=== PATIENT | female | born 1970 | race African-American/Black ===

== ENCOUNTER 2017-09-29 18:25 | Emergency (ER) | payer MEDICAID ==
[~2017-09-29] VITALS: Ht 162.6 cm; Wt 63.0 kg
[~2017-09-29 18:25] MED LIST: IBUPROFEN600 MG ORAL; NKM
[2017-09-29 18:57] VITALS: BP 152/94
[2017-09-29] MEDS ORDERED: Acetaminophen 500mg (ES) tab PO ONE (19:00)
[2017-09-29] MEDS ORDERED: TYLENOL EXTRA500 MG ORAL (20:16)
[2017-09-29] MEDS ORDERED: CYCLOBENZAPRINE10 MG ORAL (20:16)
[2017-09-29 20:25] VITALS: BP 115/67
[2017-09-29 20:27] VITALS: BP 115/67
--- NOTE | 2017-09-30 09:55 | Diagnostic Imaging Report ---
Indication: H/A, injury, headache, status post fall Technique: Spiral acquisitions obtained through the cervical spine. No IV contrast utilized. Multiplanar reconstructions were generated. Total dose length product 1575.88 mGycm. CTDIvol(s) 70.38,12.94 mGy. Dose reduction achieved using automated exposure control. Comparison: none Findings: The tip of the C6 spinous process is unfused. Suspect this is developmental. There is reversal of the normal cervical lordosis. Otherwise normal bony alignment. No acute fractures. The vertebral body heights are preserved. There is degenerative disc narrowing at C5-6 and to a very slight extent at C6-7. The remaining disc spaces are preserved. No significant disc bulge or protrusion, spinal stenosis, or neural foraminal stenosis. Multiple nodules are seen in the thyroid, including a large isthmic nodule which measures 3.2 x 1.8 cm. The remaining extraspinal soft tissues are unremarkable Impression: No acute bony trauma Mild degenerative changes, as described Multiple thyroid nodules. Recommend further evaluation with ultrasound if these have not been worked up previously This agrees with the preliminary interpretation provided overnight by [facility]. The CT scanner at [facility] is accredited by the [employer] and the scans are performed using protocols designed to limit radiation exposure to as low as reasonably achievable to attain images of sufficient resolution adequate for diagnostic evaluation.
--- NOTE | 2017-09-30 09:56 | Diagnostic Imaging Report ---
Indication: H/A Head injury, status post fall, headache Technique: Continuous helical CT scanning of the head was performed without intravenous contrast material. Axial and coronal 5 mm sections were generated. Radiation dose was minimized using automated exposure control Dose: Total Dose Length Product - DLP 1575.[address] Dose Index - CTDIvol(s) 70.38,12.94 mGy. Comparison: 08/07/2015 Findings: The ventricular system is normal in size and configuration. There is no shift of midline structures. No abnormal extra-axial fluid collections are noted. There is no evidence of intracerebral bleeding. No other abnormal high or low density areas are noted within the brain. Previously demonstrated left parietal scalp hematoma is no longer evident. However, there is some parietal scalp soft tissue swelling at the vertex, at and just the left of midline, not evident previously. Minimal right supraorbital scalp soft tissue swelling appears similar to previous. Normal de león-white differentiation. Intact calvarium. Visualized orbits and sinuses are unremarkable. Impression: Negative for acute intracranial bleed or mass effect Evidence of extracranial scalp soft tissue injury This agrees with the preliminary interpretation provided overnight by [facility]. The CT scanner at [facility] is accredited by the [employer] and the scans are performed using protocols designed to limit radiation exposure to as low as reasonably achievable to attain images of sufficient resolution adequate for diagnostic evaluation.
--- NOTE | 2017-09-30 14:19 | Emergency Room Report ---
History of Present Illness General Chief Complaint: Head, Face, Neck Trauma Source: Patient Present Illness HPI 47-year-old female presents ED for evaluation. Patient states she was walking up the steps today and fell backwards and hit her head. States she felt weak at the time. States she's been having a "flu" for the last several days. Patient presents with pain to the back of her head, neck pain. Pain is an 8/10 , throbbing, nonradiating. Denies LOC. Denies photophobia or blurry vision. Denies nausea or vomiting. Tetanus up-to-date. Denies chest pain or shortness of breath. Denies fevers or chills. Denies cough. No other aggravating relieving factors. Denies any other associated symptoms Allergies: Coded Allergies: NO KNOWN ALLERGIES (Unverified Allergy, Unknown, 08/07/15) Patient History Past Medical History: none Past Surgical History: none Pertinent Family History: none Social History: Denies: smoking, alcohol use, drug use Last Menstrual Period: 09/28/17 Now: No Immunizations: UTD Reviewed Nursing Documentation: PMH: Agreed, PSxH: Agreed Nursing Documentation-PMH Hx Cancer: No - Throat Goiter Review of Systems All Other Systems: negative except mentioned in HPI Physical Exam Vital Signs Date Time Temp Pulse Resp B/P (MAP) Pulse Ox O2 Delivery O2 Flow Rate FiO2 09/29/17 18:29 99.1 95 18 152/94 99 Room Air 99.1 Sp02 EP Interpretation: reviewed, normal General Appearance: no apparent distress, alert, GCS 15, non-toxic Head: normocephalic, other - abrasion to scalp Eyes: bilateral eye normal inspection, bilateral eye PERRL ENT: hearing grossly normal, normal pharynx, no angioedema, normal voice Neck: full range of motion, supple/symm/no masses, tender lateral Respiratory: chest non-tender, lungs clear, normal breath sounds, speaking full sentences Cardiovascular #1: regular rate, rhythm, no edema Cardiovascular #2: 2+ carotid (R), 2+ carotid (L), 2+ radial (R), 2+ radial (L) , 2+ dorsalis pedis (R), 2+ dorsalis pedis (L) Gastrointestinal: normal bowel sounds, non tender, soft, non-distended, no guarding, no rebound Rectal: deferred Genitourinary: normal inspection, no CVA tenderness Musculoskeletal: back normal, gait/station normal, normal range of motion, non- tender Neurologic: alert, oriented x3, responsive, motor strength/tone normal, sensory intact, speech normal Psychiatric: judgement/insight normal, memory normal, mood/affect normal, no suicidal/homicidal ideation Reflexes: 3+ bicep (R), 3+ bicep (L), 3+ tricep (R), 3+ tricep (L), 3+ knee (R) , 3+ knee (L) Skin: normal color, no rash, warm/dry, well hydrated Lymphatic: no adenopathy Medical Decision Making Diagnostic Impression: Primary Impression: Head injury Qualified Codes: S09.90XA - Unspecified injury of head, initial encounter ER Course Hospital Course 47-year-old female presents with headache and neck pain status post fall down the stairs Differential diagnoses include: skull fx, intracranial injury, concussion Clinical course Patient placed on stretcher. After initial history and physical I ordered CT head, CT Cspine and pain medications CT head and CT C-spine unremarkable Discussed findings with the patient. On reassessment pain is improved Diagnosis - head injury Stable and discharged to home with Rx Tylenol, Flexeril. Followup with PMD. Return to ED if symptoms recur or worsen CT/MRI/US Diagnostic Results CT/MRI/US Diagnostic Results #1: Imaging Test Ordered: CT head Impression no acute process CT/MRI/US Diagnostic Results #2: Imaging Test Ordered: CT C-spine Impression no acute process Last Vital Signs Date Time Temp Pulse Resp B/P (MAP) Pulse Ox O2 Delivery O2 Flow Rate FiO2 09/29/17 20:27 98.3 86 14 115/67 98 Room Air Status: improved Disposition: HOME, SELF-CARE Condition: Stable Scripts Cyclobenzaprine Hcl* (FLEXERIL*) 10 Mg Tablet 10 MG ORAL TID Y for Muscle Spasm, #20 TAB Prov: KIRAN GAN M.D. 09/29/17 Acetaminophen* (TYLENOL EXTRA STRENGTH*) 500 Mg Tablet 500 MG ORAL Q8H Y for Prn Headache/Temp > 101, #30 TAB 0 Refills Prov: KIRAN GAN M.D. 09/29/17 Departure Forms: Return to Work Return to Work Date: Oct 02, 2017 Work Restrictions: None Patient Instructions: Head Injury, Adult, Urdp-io-Sitw KIRAN GAN M.D. Sep 30, 2017 14:19
== END 2017-09-29 20:48 | disposition home or self-care (01) ==
LOC: EMR 18:39
DX: S09.8XXA Other specified injuries of head, initial encounter (principal); W19.XXXA Unspecified fall, initial encounter; Y92.9 Unspecified place or not applicable; R51 Headache; M50.322 Other cervical disc degeneration at C5-C6 level; E04.2 Nontoxic multinodular goiter
CPT/HCPCS: 70450; 72125; 99284

== ENCOUNTER 2020-02-04 22:35 | Emergency (ER) | payer SELFPAY ==
[~2020-02-04] VITALS: Ht 162.6 cm; Wt 63.5 kg
[~2020-02-04 22:35] MED LIST changes: +CYCLOBENZAPRINE10 MG ORAL; +TYLENOL EXTRA500 MG ORAL
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
[2020-02-04 22:52] VITALS: BP 135/89
--- NOTE | 2020-02-04 23:00 | NUR ---
ED Nurse Note: ERMD at bedside
--- NOTE | 2020-02-04 23:01 | NUR ---
ED Nurse Note: Patient denies head trauma.
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
--- NOTE | 2020-02-04 23:09 | NUR ---
ED Nurse Note: Patient taken to CT in stable condition
--- NOTE | 2020-02-04 23:31 | NUR ---
ED Nurse Note: Patient returned from CT in stable condition. Xray at bedside.
--- NOTE | 2020-02-04 23:49 | NUR ---
ED Nurse Note: ERMD at bedside
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
[2020-02-05] MEDS ORDERED: IBUPROFEN600 M1 ORAL (00:07)
[2020-02-05] MEDS ORDERED: Neosporin Oint Ud Pkt TOPIC ONE (00:15)
[2020-02-05 00:16] VITALS: BP 133/85
--- NOTE | 2020-02-05 00:16 | NUR ---
ER DISCHARGE NOTE: Patient is cleared to be discharged per ERMD, pt is aox4, on room air, with stable vital signs. pt was given dc and prescription instructions, pt was able to verbalize understanding, pt id band removed. pt is able to ambulate with steady gait. pt took all belongings. pt stable upon discharge.
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
== END 2020-02-05 00:16 | disposition home or self-care (01) ==
LOC: EMR 22:48
DX: S01.81XA Laceration without foreign body of other part of head, initial encounter (principal); S09.90XA Unspecified injury of head, initial encounter; S80.212A Abrasion, left knee, initial encounter; W19.XXXA Unspecified fall, initial encounter; Y92.9 Unspecified place or not applicable
CPT/HCPCS: 70450; 99284

== ENCOUNTER 2020-02-29 01:17 | Emergency (ER) | payer SELFPAY ==
[~2020-02-29] VITALS: Ht 162.6 cm; Wt 63.5 kg
[~2020-02-29 01:17] MED LIST changes: +IBUPROFEN600 M1 ORAL
--- NOTE | 2020-02-29 01:35 | NUR ---
ED Nurse Note: Pt ambulated to ED from home c/o systemic hives, blanchable rash all over body for 3 weeks, worsened today, pt took benadryl, pt denies sob or any other symptoms. VSS Pt is A&Ox4. ERMD at bedside.
[2020-02-29] MEDS ORDERED: ZYRTEC10 MG ORAL (01:42)
[2020-02-29] MEDS ORDERED: PREDNISONE20 MG ORAL (01:42)
[2020-02-29 01:50] VITALS: BP 149/87
--- NOTE | 2020-02-29 01:50 | NUR ---
ER DISCHARGE NOTE: Patient is cleared to be discharged per ERMD, pt is aox4, on room air, with stable vital signs. pt was given dc and prescription instructions, pt was able to verbalize understanding, pt id band removed. pt is able to ambulate with steady gait. pt took all belongings.
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
== END 2020-02-29 01:50 | disposition home or self-care (01) ==
LOC: EMR 01:39
DX: L25.9 Unspecified contact dermatitis, unspecified cause (principal); Z48.02 Encounter for removal of sutures
CPT/HCPCS: 99281; J7512